=== PATIENT | female | born 1985 ===

== ENCOUNTER 2017-01-03 07:47 | Inpatient (IN) | payer OTHER ==
[~2017-01-03] VITALS: Ht 157.5 cm; Wt 95.0 kg
[2017-01-03] VITALS (24 sets, daily range): BP systolic 103–182; BP diastolic 52–90
[2017-01-03] MEDS: LR 1,000 ML IV SCH (00:30)
[2017-01-03] MEDS ORDERED: PRENTAB9 PO (08:00)
[2017-01-03] MEDS ORDERED: ZYRT10TA2 PO (08:00)
[2017-01-03] MEDS ORDERED: SING10TA32 PO (08:00)
[2017-01-03] MEDS ORDERED: ALBU83IN INH (08:00)
[2017-01-03] MEDS ORDERED: LR 1,000 ML IV SCH (09:12)
[2017-01-03 09:34] LABS: MEAN CORPUSCULAR HEMOGLOBIN 30.3 pg (27.0-33.0); MEAN CORPUSCULAR HGB CONC 33.1 g/dl (32.0-36.5); MEAN CORPUSCULAR VOLUME 91.3 fl (80.0-96.0); RED CELL DISTRIBUTION WIDTH 14.3 % (11.5-14.5); WHITE BLOOD COUNT 10.8 K/mm3 (4.0-10.0)
[2017-01-03] MEDS: miSOPROStol 50 MCG 1/2 TAB (S0191) PO SCH ×2 (10:54→15:20)
[2017-01-03] MEDS ORDERED: FENTANYL 2MCG/ML ROPIVACAINE 0.2% IN 0.9% NACL 200ML IVBAG As Ordered ONE (17:36)
[2017-01-03] MEDS ORDERED: ePHEDrine SULFATE 25 MG/5 ML(5MG/ML) SYRINGE IV PRN (18:15)
[2017-01-03] MEDS ORDERED: FENTANYL/ROPIVACAINE/NACL BAG 200 ML EPIDURAL SCH (18:15)
[2017-01-03] MEDS ORDERED: diphenhydrAMINE INJ 50MG/ML VIAL (J1200) IV PRN (18:15)
[2017-01-03] MEDS ORDERED: LACTATED RINGER'S 1000 ML IV PRN (18:15)
[2017-01-03] MEDS ORDERED: EPIDURAL/PCA KEYS XX PRN (18:15)
[2017-01-03] MEDS ORDERED: REFRIGERATOR IV KEYS XX PRN (18:15)
[2017-01-03] MEDS ORDERED: EPIDURAL COMMENT XX SCH (18:15)
[2017-01-03] MEDS ORDERED: ONDANSETRON 4MG/2ML VIAL (J2405) IV PRN ×4 (18:15→20:45)
[2017-01-03] MEDS ORDERED: NALOXONE INJ 0.4 MG/1 ML VIAL (J2310) IV PRN ×3 (18:15→19:15)
[2017-01-03] MEDS ORDERED: fentaNYL 100 MCG/2 ML INJECTION (J3010) As Ordered ONE ×2 (19:09→19:52)
[2017-01-03] MEDS ORDERED: PROPOFOL 200 MG/20 ML VIAL As Ordered ONE (19:09)
[2017-01-03] MEDS ORDERED: MIDAZOLAM INJ 2 MG/2 ML VIAL (J2250) As Ordered ONE ×2 (19:09→19:57)
[2017-01-03] MEDS ORDERED: OXYTOCIN INJ 10 UNITS/ML VIAL (J2590) As Ordered ONE (19:09)
[2017-01-03] MEDS ORDERED: SUCCINYLCHOLINE 100 MG/5 ML SYRINGE (J0330) As Ordered ONE (19:09)
[2017-01-03] MEDS ORDERED: ceFAZolin 2 GM/D5W 50 ML IV BAG (J0690) As Ordered ONE (19:10)
[2017-01-03] MEDS ORDERED: METOCLOPRAMIDE INJ 10MG/2ML VIAL (J2765) IV PRN (19:15)
[2017-01-03] MEDS ORDERED: NALBUPHINE HCL 10 MG/ML AMP (J2300) IV PRN ×2 (19:15→20:45)
[2017-01-03] MEDS ORDERED: MORPHINE PRES-FREE INJ 10 MG/10 ML VIAL (J2274) As Ordered ONE (19:17)
[2017-01-03] MEDS ORDERED: PHENYLephrine HCL 500 MCG/5 ML (100MCG/ML) SYRINGE (J2370) As Ordered ONE (19:22)
[2017-01-03] MEDS ORDERED: KETOROLAC 60 MG/2 ML VIAL (J1885) As Ordered ONE (19:28)
[2017-01-03] MEDS ORDERED: ONDANSETRON 4MG/2ML VIAL (J2405) As Ordered ONE (19:28)
[2017-01-03 19:41] LABS: CORD GAS ABE A -7.4; CORD GAS O2 SAT A 15.4 %; CORD GAS PCO2 A 76.1 mmHg; CORD GAS PH A 7.116 UNITS; CORD GAS PO2 A 11.8 mmHg; CORD GAS SBC A 16.6 MEQ/L; CORD GAS TCO2 A 26.3 MEQ/L
[2017-01-03] MEDS ORDERED: GLYCOPYRROLATE INJ 0.2 MG/ML 2 ML VIAL As Ordered ONE (19:41)
[2017-01-03] MEDS ORDERED: NEOSTIGMINE 10 MG/10 ML VIAL (J2710) As Ordered ONE (19:41)
[2017-01-03 19:43] LABS: CORD GAS ABE V -7.8; CORD GAS HCO3 V 20.5 MEQ/L; CORD GAS O2 SAT V 69.9 %; CORD GAS PCO2 V 51.8 mmHg; CORD GAS PH V 7.215 UNITS; CORD GAS PO2 V 33.7 mmHg; CORD GAS SBC V 17.6 MEQ/L; CORD GAS TCO2 V 22.1 MEQ/L
[2017-01-03] MEDS ORDERED: SUGAMMADEX SODIUM 500 MG/5 ML VIAL (BRIDION) As Ordered ONE (19:49)
[2017-01-03] MEDS ORDERED: METHYLERGONOVINE MALEATE 0.2 MG/ML VIAL (J2210) IM PRN (20:30)
[2017-01-03] MEDS ORDERED: PERCOCET 5MG/325MG TAB PO PRN (20:30)
[2017-01-03] MEDS ORDERED: PROMETHAZINE 25 MG TAB PO PRN (20:30)
[2017-01-03] MEDS ORDERED: MEASLES,MUMPS,RUBELLA VACCINE INJ (MMR-II) (90707) SC SCH (20:30)
[2017-01-03] MEDS ORDERED: RHOGAM 300 MCG (1500 IU) INJ (J2790) IM SCH (20:30)
[2017-01-03] MEDS ORDERED: MEPERIDINE INJ 25 MG/ML VIAL (J2175) IV PRN (20:45)
[2017-01-03] MEDS ORDERED: fentaNYL 100 MCG/2 ML INJECTION (J3010) IV PRN (20:45)
[2017-01-03] MEDS ORDERED: KETOROLAC 30 MG/ML VIAL (J1885) IV PRN (20:45)
[2017-01-03] MEDS: DOCUSATE SODIUM 100 MG CAP PO SCH (21:00)
[2017-01-04 02:15] VITALS: BP 116/55
[2017-01-04] MEDS: KETOROLAC 30 MG/ML VIAL (J1885) IV SCH ×4 (02:15→20:24)
--- NOTE | 2017-01-04 05:48 | RO ---
DATE OF PROCEDURE: 01/03/2017 PREOPERATIVE DIAGNOSES: 1. Intrauterine at 41 and 1 weeks estimated gestational age. 2. Prolapsed cord. POSTOPERATIVE DIAGNOSES: 1. Intrauterine at 41 and 1 weeks estimated gestational age. 2. Prolapsed cord. 3. Delivered. OPERATION: Primary low transverse section. SURGEON: Alysha Moore MD MANAGER RELOCATION: Cathie, nurse field insurance sales manager. ANESTHESIA: General endotracheal. ESTIMATED BLOOD LOSS: 600 mL. URINE OUTPUT: 75 mL. CONDITION: Stable. COMPLICATIONS: None. FINDINGS: Viable female , scores 9 and 10. Weight 3212 grams, 7 pound 1 ounce. Normal uterus, tubes, and ovaries bilaterally. SPECIMEN: None. ANTIBIOTICS: Ancef 2 grams IV times 1. INDICATIONS: The patient is a 34-year-old G3, P3 who progressed to approximately 5 cm dilated in labor and was noted to have recurrent variable decelerations with mirian to the 30s, at which point she was checked, and there was a loop of umbilical cord noted protruding through the cervix. At that point , the decision was made to proceed with an emergent low transverse section. OPERATIVE PROCEDURE: The risks, benefits, indications, and alternatives to the procedure were reviewed with the patient, and informed consent was obtained. The patient was taken to the operating room, where general anesthesia was found to have adequate. She was then prepped and draped in the normal sterile fashion in the dorsal supine position with a leftward tilt. A Pfannenstiel skin incision was then made with the scalpel and carried through to the underlying layer of fascia. The fascia was incised in the midline and the incision extended laterally with the Soni scissors. The superior aspect of the fascial incision was then grasped, and the underlying rectus muscles were dissected off bluntly. Attention was then turned to the inferior aspect, which the fascia was dissected bluntly off of the rectus muscles. The rectus muscles were then at the midline, the peritoneum identified and entered digitally. The peritoneal incision was then extended horizontally with good visualization of the bladder. The bladder blade was then inserted. Next, the lower uterine segment was incised in a transverse fashion with the scalpel. The uterine incision was then extended manually. The amniotic sac was artificially ruptured productive of clear fluid. The bladder blade was then removed. The infant's head delivered atraumatically in the occiput anterior (OA) position through the hysterotomy without difficulty. The nose and mouth were suctioned with the bulb syringe and the cord doubly clamped and cut. The infant was handed off to the waiting pediatricians. Cord gases were obtained. The placenta was then removed spontaneously with gentle traction on the umbilical cord. The uterus was then exteriorized and cleared of all clots and debris. Uterine incision was then repaired with #0 Vicryl in a running-locked fashion. A second layer of #0 Vicryl was then used to imbricate the hysterotomy. The posterior cul-de-sac was then irrigated. The uterus was returned to the abdomen, and the hysterotomy was again noted to be hemostatic. The pericolic gutters were irrigated and cleared of all clots and debris. The fascia was then reapproximated with #0 Vicryl in a running fashion. The subcutaneous layer was closed with #3-0 Vicryl in a running fashion. The skin was then closed with #3-0 Monocryl on a Efraín needle in subcuticular fashion. The incision was then dressed with Steri-Strips and a pressure dressing applied. At the completion of the case, bimanual exam was performed with good uterine tone and minimal vaginal bleeding. The patient tolerated the procedure well. Sponge, lap, and needle counts were times three. Patient was taken to the recovery room in stable condition. GURPREET
[2017-01-04 06:18] VITALS: BP 116/68
[2017-01-04 08:01] LABS: MEAN CORPUSCULAR HEMOGLOBIN 29.7 pg (27.0-33.0); RED CELL DISTRIBUTION WIDTH 14.2 % (11.5-14.5); WHITE BLOOD COUNT 11.4 K/mm3 (4.0-10.0)
[2017-01-04] MEDS: LR 1,000 ML IV SCH (08:30)
--- NOTE | 2017-01-04 08:44 | REP ---
Clinical: Stat section without instrument count. Technique: Single portable supine view of the abdomen and pelvis. Findings: Epidural catheter overlies the L2-3 level. No residual operative material or foreign body noted. Bowel gas pattern is nonspecific. Skeletal structures intact. Impression: No residual operative material or foreign body. Signed by Jose Galaviz MD 01/04/2017 08:35 A
[2017-01-04] MEDS: DOCUSATE SODIUM 100 MG CAP PO SCH ×2 (08:55→21:00)
[2017-01-04] MEDS: PRENATAL VITAMIN TAB PO SCH (08:56)
[2017-01-04 10:45] VITALS: BP 124/58
[2017-01-04 14:02] VITALS: BP 110/55
[2017-01-04 18:00] VITALS: BP 125/60
[2017-01-04 22:00] VITALS: BP 139/58
[2017-01-04] MEDS: PERCOCET 5MG/325MG TAB PO PRN (23:56)
[2017-01-05] MEDS: IBUPROFEN 800 MG TAB PO SCH ×2 (04:03→12:00)
[2017-01-05] MEDS: PERCOCET 5MG/325MG TAB PO PRN ×2 (05:34→09:36)
[2017-01-05 06:06] VITALS: BP 123/70
[2017-01-05] MEDS: DOCUSATE SODIUM 100 MG CAP PO SCH (08:13)
[2017-01-05] MEDS: PRENATAL VITAMIN TAB PO SCH (08:13)
[2017-01-05] MEDS ORDERED: COLA100C3 PO (12:17)
[2017-01-05] MEDS ORDERED: PERC5TAB6 PO (12:17)
[2017-01-05] MEDS ORDERED: MOTR200T44 PO (12:17)
== END 2017-01-05 13:25 | disposition home or self-care (01) | DRG 766 ==
LOC: M LDI 07:47 → M OBS 20:50
PROVIDERS: ADMIT Obstetrics & Gynecology; ATTEND Obstetrics & Gynecology
PROC: 10D00Z1 Extraction of Products of Conception, Low, Open Approach (ICD-10-PCS; principal; 2017-01-03)
DX: O69.0XX0 Labor and delivery complicated by prolapse of cord, not applicable or unspecified (principal); Z37.0 Single live birth; Z3A.41 41 weeks gestation of pregnancy; O48.0 Post-term pregnancy